=== PATIENT | female | born 1945 | race Hispanic/Latino ===

== ENCOUNTER → 2018-04-21 | Outpatient (CLI) | payer OTHER ==
[~2018-04-21] VITALS: Ht 160 cm; Wt 102.1 kg
[~2018-04-21] MED LIST: DULO60CA63 PO; HYDR-4064 PO; IBUP-2077 PO; LEVO25TA54 PO; PANT40TA25 PO; REGADENOSON 0.4 MG/5 ML PF SYG IVP SCH
== END | disposition home or self-care (01) ==
LOC: SHCH 08:41
PROVIDERS: ATTEND Internal Medicine Cardiovascular Disease
DX: Z01.810 Encounter for preprocedural cardiovascular examination (principal); R06.00 Dyspnea, unspecified; E03.9 Hypothyroidism, unspecified
CPT/HCPCS: 78452; 93017; 96374; A9500 ×2; J2785

== ENCOUNTER → 2018-05-01 | Outpatient (CLI) | payer OTHER ==
[~2018-05-01] MED LIST changes: -REGADENOSON 0.4 MG/5 ML PF SYG IVP SCH
== END | disposition home or self-care (01) ==
LOC: SHCH 15:25
PROVIDERS: ATTEND Internal Medicine Cardiovascular Disease
DX: Z01.810 Encounter for preprocedural cardiovascular examination (principal)
CPT/HCPCS: 93306

== ENCOUNTER 2018-05-29 08:39 | Day surgery (SDC) | payer OTHER ==
[2018-05-28 15:51] VITALS: BP 135/76
[2018-05-28 15:55] LABS: EOSINOPHILS % (AUTO) 0.2 % (0.0-8.0); HEMATOCRIT 38.8 % (36-48); MEAN CORPUSCULAR HEMOGLOBIN 31.1 pg (27.0-33.0); MEAN CORPUSCULAR VOLUME 91.4 fL (79-99); MONOCYTES % (AUTO) 8.5 % (3.0-13.0); NEUTROPHILS % (AUTO) 61.3 % (40.0-77.0); PLATELET COUNT (AUTO) 318 K/uL (130-400); RED BLOOD CELL COUNT(AUTO) 4.24 MIL/uL (4.00-5.50); RED CELL DISTRIBUTION WIDTH 12.4 % (11.0-15.5); WHITE BLOOD COUNT (AUTO) 7.3 K/uL (4.8-10.8)
[2018-05-28 16:03] LABS: CREATININE 0.7 mg/dL (0.5-1.5); POTASSIUM 3.9 mmol/L (3.5-5.1)
[2018-05-29] VITALS (16 sets, daily range): BP systolic 114–158; BP diastolic 51–90
[~2018-05-29] VITALS: Ht 161.3 cm; Wt 105.1 kg
[~2018-05-29 08:39] MED LIST changes: +CEFAZOLIN 3GM /D5W 100ML 100 ML IV SCH; -DULO60CA63 PO; -PANT40TA25 PO
[2018-05-29] MEDS ORDERED: CEFAZOLIN SODIUM 1 GM VIAL ONE (10:02)
[2018-05-29] MEDS ORDERED: LACTATED RINGERS 1000ML 1,000 ML IV ONE (10:02)
[2018-05-29] MEDS ORDERED: EPINEPHRINE 1 MG/ML 30ML VIAL IJ ONE (11:48)
[2018-05-29] MEDS ORDERED: ROPIVACAINE 0.5% 5MG/ML 30ML IJ ONE (12:13)
[2018-05-29] MEDS ORDERED: LIDOCAINE PF 2% 5ML ABBOJECT ONE (12:15)
[2018-05-29] MEDS ORDERED: ONDANSETRON HCL 4 MG/2 ML VIAL ONE (12:16)
[2018-05-29] MEDS ORDERED: MIDAZOLAM HCL 1 MG/ML 2ML VIAL ONE (12:16)
[2018-05-29] MEDS ORDERED: ROCURONIUM 10MG/1ML SYR 10 MG/ML ML ONE ×2 (12:16→13:43)
[2018-05-29] MEDS ORDERED: PROPOFOL 10 MG/ML 20ML VIAL IV ONE (12:16)
[2018-05-29] MEDS ORDERED: GLYCOPYRROLATE 1 MG/5 ML SYRINGE ONE (15:06)
[2018-05-29] MEDS ORDERED: NEOSTIGMINE 5MG/5ML SYR IV ONE (15:07)
[2018-05-29] MEDS ORDERED: CEPH500B PO (15:25)
[2018-05-29] MEDS ORDERED: HYDR-4457 PO (15:25)
[2018-05-29] MEDS ORDERED: MEPERIDINE-PF 25 MG/ML SYG ONE (16:01)
[2018-05-29] MEDS ORDERED: ALBUTEROL SULFATE 0.083% 2.5 MG/3 ML INH IH ONE (16:19)
[2018-05-29] MEDS ORDERED: IPRATROPIUM/ALBUTEROL SULFATE 3 ML SOLUTION IH ONE (16:43)
== END 2018-05-29 17:40 | disposition home or self-care (01) ==
LOC: SUH 08:39 → DAH 08:39 → SUH 17:40
PROVIDERS: ATTEND Orthopaedic Surgery
DX: M75.101 Unspecified rotator cuff tear or rupture of right shoulder, not specified as traumatic (principal); M75.21 Bicipital tendinitis, right shoulder; M19.011 Primary osteoarthritis, right shoulder; Z79.899 Other long term (current) drug therapy; K21.9 Gastro-esophageal reflux disease without esophagitis; M19.90 Unspecified osteoarthritis, unspecified site; Z90.49 Acquired absence of other specified parts of digestive tract; Z83.3 Family history of diabetes mellitus; Z68.41 Body mass index [BMI] 40.0-44.9, adult; J45.909 Unspecified asthma, uncomplicated; E55.9 Vitamin D deficiency, unspecified; M51.16 Intervertebral disc disorders with radiculopathy, lumbar region; G25.81 Restless legs syndrome; E66.01 Morbid (severe) obesity due to excess calories; Z86.010 Personal history of colon polyps; F32.0 Major depressive disorder, single episode, mild; Z98.890 Other specified postprocedural states; E78.00 Pure hypercholesterolemia, unspecified
CPT/HCPCS: 29824; 29826; 29827; 36415; 80048; 85025; 94640 ×2; A4649 ×6; A4930 ×2; A6204; C1713; G0168; J0171; J0690; J2001; J2175; J2250; J2405; J2704; J2710; J2795; J3490; J7030; J7120